=== PATIENT | female | born 1970 | race Caucasian/White ===

== ENCOUNTER 2016-06-16 18:56 | Emergency (ER) | payer OTHER ==
[2016-06-16 19:11] VITALS: BP 127/76
[2016-06-16] MEDS ORDERED: Cyclobenzaprine 10 MG Tab PO ONE (19:14)
[2016-06-16] MEDS ORDERED: Ketorolac 30 MG/ML SDV IM ONE (19:14)
--- NOTE | 2016-06-16 19:19 | EDM.PDOC ---
ED UPPER BACK/NECK PAIN/INJURY - General Chief Complaint: Neck Problem Stated Complaint: SORE NECK Time Seen by Provider: 06/16/16 19:01 - History of Present Illness INITIAL COMMENTS - FREE TEXT/NARRATIVE: 45-year-old female presents emergency room with neck pain. This started 2 days ago on Wednesday and progressively gotten worse. Yesterday she saw a chiropractor had her neck manipulated felt a pop and then the pain got much worse. She does not have any radicular symptoms into her arms. No numbness or tingling. The pain seems to be worse in the left side but both sides are involved. Patient denies any fevers or chills however she has felt warm when she 's been active. Patient has a significant history of prior problems with her neck. Patient cannot recall sleeping on it wrong however the last couple of days she has not gotten much sleep. - Related Data Allergies/ADRs: Allergies Allergy/AdvReac Type Severity Reaction Status Date / Time No Known Allergies Allergy Verified 06/16/16 19:11 Home Meds: Home Meds Spironolactone [Aldactone] 150 mg PO DAILY 09/26/13 [History] Thyroid [[place] Thyroid] 45 mg PO ASDIRECTED 09/26/13 [History] Thyroid,Pork [[place] Thyroid] 60 mg PO ASDIRECTED 09/26/13 [History] Cyclobenzaprine [Flexeril] 10 mg PO TID #15 tablet 06/16/16 [Rx] Hydrocodone/Acetaminophen [Boyce 5-325 Tablet] 1 each PO Q6H PRN #10 tablet [Rx] Social & Family History - Alcohol Use Days Per Week of Alcohol Use: 1 Number of Drinks Per Day: 2 Total Drinks Per Week: 2 - Recreational Drug Use Recreational Drug Use: No ED ROS GENERAL - Review of Systems Review Of Systems: See Below Constitutional: Reports: no symptoms HEENT: Reports: No symptoms Respiratory: Reports: No Symptoms Cardiovascular: Reports: No symptoms GI/Abdominal: Reports: No symptoms Musculoskeletal: Reports: no symptoms ED EXAM, UPPER BACK/NECK PAIN - Physical Exam Exam: See Below Exam Limited By: No limitations General Appearance: alert, no apparent distress Head Exam: atraumatic, normocephalic Neck Exam: normal alignment, normal inspection, muscle spasm, painful range of motion, paraspinous muscle tender, stiff neck, tenderness (Chest bilateral neck tenderness worse on the left compared to the right with the pain at its worst at the insertion of the base of the skull), tender lateral (Do so). No: non- tender, full range of motion, spinous processes tender, tender midline Cardiovascular/Respiratory: regular rate, rhythm, normal peripheral pulses, normal breath sounds, no respiratory distress. No: gallop, murmur, rhonchi, wheezing Extremities: normal inspection, other (Nontender upper extremities with palpation some rotation but stretch on the muscles and going to the neck or uncomfortable. Neurovascular status the hands is normal she has a positive Tinel 's bilaterally with mild distal paresthesias) Course - Vital Signs Last Recorded V/S: Last Vital Signs Temp 37.6 C 06/16/16 19:06 Pulse 93 06/16/16 19:06 Resp 14 06/16/16 19:06 BP 127/76 06/16/16 19:06 Pulse Ox 100 06/16/16 19:06 - Orders/Labs/Meds Orders: Active Orders 24 hr Category Date Time Status Cervical Spine 2V or 3V [CR] Stat Exams 06/16/16 19:15 Taken Meds: Medications Discontinued Medications Generic Name Dose Route Start Last Admin Trade Name Freq PRN Reason Stop Dose Admin Cyclobenzaprine HCl 10 mg 06/16/16 19:14 06/16/16 19:23 Flexeril PO 06/16/16 19:15 10 mg ONETIME ONE Administration Ketorolac Tromethamine 30 mg 06/16/16 19:14 06/16/16 19:23 Toradol IM 06/16/16 19:15 30 mg ONETIME ONE Administration - Re-Assessments/Exams Free Text/Narrative Re-Assessment/Exam: 06/16/16 19:26 Patient has a neck strain albeit the pop she heard during her manipulation yesterday is a little concerning we will go ahead and check C-spine x-rays give her a dose of Toradol and Flexeril. 06/16/16 20:43 The patient is doing a little better at this point she requests something for pain, but is ready to go home. She be given a prescription for Flexeril this was sent to [facility] and will be given a prescription for Boyce #10 5/325 one every 6 hours as needed. Departure - Departure Time of Disposition: 20:44 Disposition: Home, Self-Care 01 Clinical Impression: Cervical muscle strain Prescriptions: Cyclobenzaprine [Flexeril] 10 mg PO TID #15 tablet Hydrocodone/Acetaminophen [Boyce 5-325 Tablet] 1 each PO Q6H PRN #10 tablet PRN Reason: Pain Forms: ED Department Discharge Additional Instructions: Return to emergency room if any questions or problems. Followup at the hospital clinic on for recheck [phone]. You been given Flexeril this is strong muscle relaxant and it can cause sedation. Take one every 8 hours starting tomorrow morning. After 2 days of taking this medication decrease it to once daily only at night. Allow 12 hours after using this medication before driving or returning to work. You have been given Boyce, hydrocodone, this is a pain medication you can take one every 6 hours as needed for pain. Allow 12 hours after taking this medication before driving or returning to work. Continue your ibuprofen 800 mg up to 3 times daily with meals. - My Orders Last 24 Hours: My Active Orders 06/16/16 19:15 Cervical Spine 2V or 3V [CR] Stat - Assessment/Plan Last 24 Hours: My Active Orders 06/16/16 19:15 Cervical Spine 2V or 3V [CR] Stat
--- NOTE | 2016-06-17 06:45 | CR ---
Cervical spine: AP, lateral and odontoid views of the cervical spine were obtained. Comparison: No previous cervical spine exam. Vertebral body heights and disc spaces are maintained. Very minimal kyphosis is seen within the mid cervical spine. No fracture or subluxation is seen. Impression: 1. Slightly abnormal cervical curvature possibly due to mild muscle spasm. 2. Cervical spine study is otherwise unremarkable. Diagnostic code #2
== END 2016-06-16 20:58 | disposition home or self-care (01) ==
LOC: JD.ED 18:56
DX: S16.1XXA Strain of muscle, fascia and tendon at neck level, initial encounter (principal); X58.XXXA Exposure to other specified factors, initial encounter; Z79.899 Other long term (current) drug therapy
CPT/HCPCS: 72040; 96372; 99283; A9270; J1885

== ENCOUNTER 2016-12-01 06:56 | Day surgery (SDC) | payer OTHER ==
[~2016-12-01 06:56] MED LIST: Lidocaine 1%/Sod Bicarbonate in NS 8.4% 1 ML Syringe PRN; Sodium Chloride 0.9% 10 ML Syringe FLUSH PRN
[2016-12-01] MEDS ORDERED: Dexamethasone 4 MG/ML 5 ML MDV ONE (07:12)
[2016-12-01] MEDS ORDERED: Rocuronium 50 MG/5 ML Vial ONE (07:12)
[2016-12-01] MEDS ORDERED: Ondansetron 4 MG/2 ML SDV ONE (07:12)
[2016-12-01] MEDS ORDERED: HYDROmorphone 1 MG/ML Syringe ONE (07:12)
[2016-12-01] MEDS ORDERED: Lidocaine 1% 4 ML ONE (07:12)
[2016-12-01] MEDS ORDERED: Propofol 200 MG/20 ML SDV ONE ×2 (07:13→11:04)
[2016-12-01] MEDS ORDERED: fentaNYL 250 MCG/5 ML SDV ONE (07:13)
[2016-12-01] MEDS ORDERED: Midazolam 1 MG/ML 2 ML SDV ONE (07:13)
[2016-12-01] MEDS ORDERED: ceFAZolin 1 GM Vial ONE (07:14)
[2016-12-01] MEDS: Lactated Ringers 1,000 ML IV SCH ×2 (07:30→12:29)
--- NOTE | 2016-12-01 07:41 | PCM.PREANE ---
Preanesthetic Assessment - Anesthesia/Transfusion/Family Hx Anesthesia History: Prior Anesthesia Without Reaction Family History of Anesthesia Reaction: No Transfusion History: No Prior Transfusion(s) - Review of Systems General: No Symptoms Pulmonary: No Symptoms Cardiovascular: No Symptoms Gastrointestinal: No Symptoms Neurological: No Symptoms Other: Reports: Thyroid Problems - Physical Assessment NPO Status Date: 11/30/16 NPO Status Time: 19:00 Pulse: 55 O2 Sat by Pulse Oximetry: 96 Respiratory Rate: 16 Blood Pressure: 95/47 Temperature: 36.4 C Height: 1.65 m Weight: 71.668 kg ASA Class: 1 Mental Status: Alert & Oriented x3 Airway Class: Mallampati = 1 Dentition: Reports: Normal Dentition Thyro-Mental Finger Breadths: 3 Mouth Opening Finger Breadths: 3 ROM/Head Extension: Full Lungs: Clear to Auscultation, Normal Respiratory Effort Cardiovascular: Regular Rate, Regular Rhythm - Lab Values: Laboratory Last Values WBC 6.16 K/mm3 (3.98-10.04) 11/24/16 14:26 RBC 4.84 M/mm3 (3.98-5.22) 11/24/16 14:26 Hgb 15.4 gm/L (11.2-15.7) 11/24/16 14:26 Hct 45.2 % (34.1-44.9) H 11/24/16 14:26 MCV 93.4 fl (79.4-94.8) 11/24/16 14:26 MCH 31.8 pg (25.6-32.2) 11/24/16 14:26 MCHC 34.1 g/dl (32.2-35.5) 11/24/16 14:26 RDW Std Deviation 40.5 fL (36.4-46.3) 11/24/16 14:26 Plt Count 281 K/mm3 (182-369) 11/24/16 14:26 MPV 9.4 fl (9.4-12.3) 11/24/16 14:26 Neut % (Auto) 64.5 % (34.0-71.1) 11/24/16 14:26 Lymph % (Auto) 23.7 % (19.3-51.7) 11/24/16 14:26 [place] % (Auto) 8.9 % (4.7-12.5) 11/24/16 14:26 Eos % (Auto) 2.1 (0.7-5.8) 11/24/16 14:26 Baso % (Auto) 0.6 % (0.1-1.2) 11/24/16 14:26 Neut # (Auto) 3.97 K/mm3 (1.56-6.13) 11/24/16 14:26 Lymph # (Auto) 1.46 K/mm3 (1.18-3.74) 11/24/16 14:26 [place] # (Auto) 0.55 K/mm3 (0.24-0.36) H 11/24/16 14:26 Eos # (Auto) 0.13 K/mm3 (0.04-0.36) 11/24/16 14:26 Baso # (Auto) 0.04 K/mm3 (0.01-0.08) 11/24/16 14:26 Sodium 141 mEq/L (136-145) 11/24/16 14:26 Potassium 4.1 mEq/L (3.5-5.1) 11/24/16 14:26 Chloride 102 mEq/L (98-107) 11/24/16 14:26 Carbon Dioxide 30 mEq/L (21-32) 11/24/16 14:26 Anion Gap 13.1 (5-15) 11/24/16 14:26 BUN 20 mg/dL (7-18) H 11/24/16 14:26 Creatinine 1.0 mg/dL (0.55-1.02) 11/24/16 14:26 Est Cr Clr Drug Dosing 63.25 mL/min 11/24/16 14:26 Estimated GFR (MDRD) 60 mL/min (>60) 11/24/16 14:26 BUN/Creatinine Ratio 20.0 (14-18) H 11/24/16 14:26 Glucose 117 mg/dL (74-106) H 11/24/16 14:26 Calcium 10.2 mg/dL (8.5-10.1) H 11/24/16 14:26 Total Bilirubin 0.4 mg/dL (0.2-1.0) 11/24/16 14:26 AST 22 U/L (15-37) 11/24/16 14:26 ALT 31 U/L (14-59) 11/24/16 14:26 Alkaline Phosphatase 64 U/L (46-116) 11/24/16 14:26 Total Protein 8.5 g/dl (6.4-8.2) H 11/24/16 14:26 Albumin 4.3 g/dl (3.4-5.0) 11/24/16 14:26 Globulin 4.2 gm/dL 11/24/16 14:26 Albumin/Globulin Ratio 1.0 (1-2) 11/24/16 14:26 Urine HCG, Qual Negative (NEGATIVE) 11/24/16 14:26 - Allergies Allergies/Adverse Reactions: Allergies Allergy/AdvReac Type Severity Reaction Status Date / Time amoxicillin [From Augmentin] Allergy Vomiting Verified 11/30/16 13:50 clavulanic acid Allergy Vomiting Verified 11/30/16 13:50 [From Augmentin] - Acknowledgements Anesthesia Type Planned: General Anesthesia Pt an Appropriate Candidate for the Planned Anesthesia: Yes Alternatives and Risks of Anesthesia Discussed w Pt/Guardian: Yes Pt/Guardian Understands and Agrees with Anesthesia Plan: Yes PreAnesthesia Questionnaire HEENT History: Reports: Otitis Media, Sinusitis Cardiovascular History: Reports: None Respiratory History: Reports: None Gastrointestinal History: Reports: Chronic Constipation, Other (See Below) Other Gastrointestinal History: epigastric pain Genitourinary History: Reports: Urinary Incontinence, Other (See Below) Other Genitourinary History: menorrhagia, stress urinary incontinence ACOUSTICAL CARPENTER History: Reports: , Other (See Below) Other OB/BYN History: pelvic pain, irregular menses, ovariam cyst, ecotpic , grade II cystocele Musculoskeletal History: Reports: None Neurological History: Reports: Migraines Psychiatric History: Reports: Depression Endocrine/Metabolic History: Reports: Hypothyroidism, Other (See Below) Other Endocrine/Metabolic History: hirsutism, hair loss Hematologic History: Reports: None Immunologic History: Reports: None Oncologic (Cancer) History: Reports: None Dermatologic History: Reports: Other (See Below) Other Dermatologic History: itching - Past Surgical History Head Surgeries/Procedures: Reports: None HEENT Surgical History: Reports: None Cardiovascular Surgical History: Reports: None Respiratory Surgical History: Reports: None GI Surgical History: Reports: Cholecystectomy Female Surgical History: Reports: None, Section Other Female Surgeries/Procedures: right salpingectomy Male Surgical History: Reports: None Endocrine Surgical History: Reports: None Neurological Surgical History: Reports: None Musculoskeletal Surgical History: Reports: None Oncologic Surgical History: Reports: None - SUBSTANCE USE Smoking Status *Q: Never Smoker Second Hand Smoke Exposure: No Days Per Week of Alcohol Use: 1 Number of Drinks Per Day: 2 Total Drinks Per Week: 2 Recreational Drug Use History: No - HOME MEDS Home Medications: Home Meds Spironolactone [Aldactone] 150 mg PO DAILY 09/26/13 [History] Thyroid [[place] Thyroid] 45 mg PO MOTUTHFRSA 09/26/13 [History] Thyroid,Pork [[place] Thyroid] 60 mg PO SUWE 09/26/13 [History] Calcium Carbonate/Vitamin D3 [Calcium 600 + Vit D Tablet] 1 tab PO DAILY [History] Multivitamin [Poly-Vitamin] 1 tab PO DAILY 11/30/16 [History] Sertraline [Zoloft] 50 mg PO DAILY 11/30/16 [History] - CURRENT (IN HOUSE) MEDS Current Meds: Current Medications Lactated Ringer's (Ringers, Lactated) 1,000 mls @ 125 mls/hr IV ASDIRECTED INDU Stop: 12/01/16 23:00 Lidocaine/Sodium Bicarbonate (Buffered Lidocaine 1% In Ns 8.4%) 0.25 ml .XX ONETIME PRN PRN Reason: Prior to IV Start Stop: 12/01/16 18:00 Sodium Chloride (Saline Flush) 10 ml FLUSH ASDIRECTED PRN PRN Reason: Keep Vein Open Stop: 12/01/16 18:00 Discontinued Medications Cefazolin Sodium (Ancef) Confirm Administered Dose 2 gm .ROUTE .STK-MED ONE Stop: 12/01/16 07:15 Dexamethasone (Dexamethasone) Confirm Administered Dose 20 mg .ROUTE .STK-MED ONE Stop: 12/01/16 07:13 Fentanyl (Sublimaze) Confirm Administered Dose 250 mcg .ROUTE .STK-MED ONE Stop: 12/01/16 07:14 Hydromorphone HCl (Dilaudid) Confirm Administered Dose 1 mg .ROUTE .STK-MED ONE Stop: 12/01/16 07:13 Lidocaine HCl (Xylocaine-Mpf 1%) Confirm Administered Dose 4 mls @ as directed .ROUTE .STK-MED ONE Stop: 12/01/16 07:13 Midazolam HCl (Versed 1 Mg/Ml) Confirm Administered Dose 2 mg .ROUTE .STK-MED ONE Stop: 12/01/16 07:14 Ondansetron HCl (Zofran) Confirm Administered Dose 4 mg .ROUTE .STK-MED ONE Stop: 12/01/16 07:13 Propofol (Diprivan 20 Ml) Confirm Administered Dose 400 mg .ROUTE .STK-MED ONE Stop: 12/01/16 07:14 Rocuronium [place] (Zemuron) Confirm Administered Dose 50 mg .ROUTE .STK-MED ONE Stop: 12/01/16 07:13
[2016-12-01] MEDS ORDERED: Bupivacaine 0.5% 30 ML SDV ONE (08:16)
[2016-12-01] MEDS: Lidocaine 1% with EPINEPHrine 1:100,000 20 ML MDV ONE ×2 (09:00→09:46)
[2016-12-01] MEDS: Sodium Chloride 0.9% 50 ML SDV ONE ×2 (09:00→09:46)
[2016-12-01] MEDS ORDERED: HYDROmorphone 0.5 MG/0.5 ML Syringe IVPUSH PRN (09:22)
[2016-12-01] MEDS ORDERED: fentaNYL 100 MCG/2 ML SDV IVPUSH PRN (09:22)
[2016-12-01] MEDS ORDERED: Haloperidol Lactate 5 MG/ML SDV IVPUSH ONE (09:22)
[2016-12-01] MEDS ORDERED: Lactated Ringers 1,000 ML ONE ×2 (09:30→11:01)
[2016-12-01] MEDS ORDERED: Ketorolac 30 MG/ML SDV ONE (09:30)
[2016-12-01] MEDS ORDERED: Neostigmine Methylsulfate 1 MG/ML 5 ML Syringe ONE (09:41)
[2016-12-01] MEDS ORDERED: Ondansetron 4 MG/2 ML SDV IVPUSH PRN (10:03)
[2016-12-01] MEDS ORDERED: Acetaminophen/oxyCODONE 325-5 MG Tab PO PRN (10:03)
--- NOTE | 2016-12-01 10:11 | PCM.OPNOTE ---
- General Post-Op/Procedure Note Date of Surgery/Procedure: 12/01/16 Operative Procedure(s): Total vaginal hysterectomy with bilateral salpingectomy and subfascial mid-urethral hammock procedure Findings: Grade 1 cystocele. Uterus is upper limits normal size, ovaries appear intact. Disproportion right fallopian tube was surgically removed with only proximal portion remaining. Left fallopian tube normal. Scar noted in the anterior uterine area where the scar present. Pre Op Diagnosis: Menorrhagia, pelvic pain, abnormal uterine bleeding, stress urine incontinence Post-Op Diagnosis: Same Anesthesia Technique: General ET Tube Other Anesthesia Type: Lidocaine quarter percent with epinephrineapproximately 25 mL total Primary Surgeon: Selwyn Maria Secondary Surgeon: Vadim Smith Anesthesia Provider: Kelli Damon Silk Top Hat Body Maker: Bishop Jensen Reason Silk Top Hat Body Maker Was Necessary: Retraction Role of Silk Top Hat Body Maker: Retraction Pathology: Uterus and bilateral fallopian tubes in one specimen container Fluid Replacement, Intraop: 1,700 Output, Urine Amount: 400 EBL in mLs: 110 Complications: None Condition: Good Free Text/Narrative:: Surgery duration: 53 minutes Procedure: The patient was placed in supine position on the operating table. General endotracheal anesthesia was accomplished. After positioning, and adequate prep and drape, the procedure was then performed. Sterile speculum was placed in the vagina and cervix was visualized. Cervix was injected with lidocaine quarter percent with szetionohna64 mL used. A full circumference incision was made in the cervical epithelium. The bladder was pushed well back off cervix. Posterior cul-de-sac was then entered sharply without problems. Left uterosacral was crossclamped with a Enseal vessel closure system. The left uterosacral and then the right uterosacral ligament pedicles were developed using the Enseal system. The anterior cul-de-sac was then entered without problems and the uterine vasculature, cardinal ligament and broad ligament then developed using Enseal vessel closure system. The uterus was inverted at this time and upper broad ligament fallopian tube pedicles were crossclamped with Chandler clamps. Specimen was totally removed. Both these pedicles were then secured with a Chandler stitch of #1 Vicryl. Left fallopian tube was normal in appearance. Right fallopian tube was present only in the proximal portion was distal portion including the fimbria previously removed.. Using Enseal vessel closure system each of the tubes was then removed and sent with the specimen. Both ovaries were removed per patient' s desire. The Enseal vessel closure system was used to remove both ovaries. The patient was found to be hemostatically intact at this time. A pursestring suture was and placed in the peritoneal cavity externalizing pedicles in case of bleeding. Vaginal cuff was sutured for hemostatic reasons with a running locked suture of 0 Monocryl from the 2 o'clock position to the 10 o'clock position posteriorly. Vaginal cuff was then closed from right to left side with a running locked suture of 0 Monocryl. Subfascial mid-urethral hammock procedure was then performed. The epithelium overlying the urethra was grasped approximately 1 cm from the urethral meatus and approximately 2 cm cephalad from there with Allis clamps. The area of the skin overlying the medial aspect of the obturator foramen on each side just posterior to the origin the abductor longus musclewas marked with a marking pen. These 2 areas and the sub-fascial layer of the vaginal were then infiltrated with lidocaine quarter percent with epinephrinetotal of approximately 10 mL was used. incisions made in the epithelium overlying the urethra and 2 small stab wounds 3 mm in length were made in the 2 areas of the panty line of the patient. The subfascial planes and adequately dissected bilaterally to allow placement of the mesh. The helical adapter was then placed through the obturator on patient's left side brought out through the vaginal subfascial plane. Mesh was attached to it and then was pulled back through the obturator foramen. Same was done on the right side. Mesh was then snugged up to the urethra. Dilator 15 mm in diameter was used as a spacer to place the mesh in a tension-free position. At this point the mesh was cut off at the skin surface and the dilator was removed. The midline epithelium was closed with a short running suture of 3-0 Monocryl. Skin incisions were closed with Dermabond skin glue. These bladder was filled with approximately 240 cc of normal saline to facilitate voiding and therefore discharged home. The patient was returned to supine position, awakened from general endotracheal anesthesia and was discharged from operating room in good
--- NOTE | 2016-12-01 10:19 | PCM.POSTAN ---
POST ANESTHESIA ASSESSMENT - MENTAL STATUS Mental Status: Alert, Oriented - VITAL SIGNS Pulse Rate: 81 SaO2: 96 Resp Rate: 14 Blood Pressure: 85/39 Temperature: 36.4 C - RESPIRATORY Respiratory Status: Respiratory Rate WNL, Airway Patent, O2 Saturation Stable, Supplemental Oxygen - CARDIOVASCULAR CV Status: Pulse Rate WNL, Blood Pressure Stable - GASTROINTESTINAL GI Status: No Symptoms - PAIN Pain Score: 0 - POST OP HYDRATION Hydration Status: Adequate & Stable
[2016-12-01 14:21] VITALS: BP 95/48
--- NOTE | 2016-12-02 13:45 | PCM48HPAN ---
Post Anesthesia Note - EVALUATION WITHIN 48HRS OF ANESTHETIC Vital Signs in Normal Range: Yes Patient Participated in Evaluation: Yes Respiratory Function Stable: Yes Airway Patent: Yes Cardiovascular Function Stable: Yes Hydration Status Stable: Yes Pain Control Satisfactory: Yes Nausea and Vomiting Control Satisfactory: Yes Mental Status Recovered: Yes
== END 2016-12-01 14:00 | disposition home or self-care (01) ==
LOC: JD.SDS 06:56
PROVIDERS: ATTEND Obstetrics & Gynecology
DX: N84.1 Polyp of cervix uteri (principal); N80.0 Endometriosis of uterus; N73.6 Female pelvic peritoneal adhesions (postinfective); N83.8 Other noninflammatory disorders of ovary, fallopian tube and broad ligament; N81.10 Cystocele, unspecified; N39.3 Stress incontinence (female) (male); K59.09 Other constipation; F32.9 Major depressive disorder, single episode, unspecified; E03.9 Hypothyroidism, unspecified; Z88.0 Allergy status to penicillin; Z88.1 Allergy status to other antibiotic agents; Z79.899 Other long term (current) drug therapy; Z90.49 Acquired absence of other specified parts of digestive tract; Z98.890 Other specified postprocedural states
CPT/HCPCS: 36415; 58262; 80053; 81025; 85025; 86850; 86900; 86901; A9270; C1771; J0690; J1100; J1170; J1885; J2250; J2405; J2710; J3010; J7120; 00952; J2704

== ENCOUNTER 2018-02-25 17:24 | Emergency (ER) | payer OTHER ==
[2018-02-25 17:48] VITALS: BP 122/83
[2018-02-25] MEDS ORDERED: HYDROmorphone 1 MG/ML Syringe IVPUSH ONE (18:09)
[2018-02-25] MEDS ORDERED: Sodium Chloride 0.9% 10 ML Syringe FLUSH PRN (18:10)
[2018-02-25] MEDS ORDERED: Lactated Ringers 1,000 ML IV ONE (18:21)
[2018-02-25] MEDS ORDERED: Ondansetron 4 MG/2 ML SDV IVPUSH ONE (18:21)
[2018-02-25] MEDS ORDERED: Iopamidol 612 MG/ML 150 ML Bottle IVPUSH ONE (19:16)
[2018-02-25] MEDS ORDERED: Diatrizoate Meglumine/Diatrizoate Sodium 37% 120 ML Bottle PO ONE (19:16)
--- NOTE | 2018-02-25 20:03 | CT ---
CT abdomen and pelvis Technique: Multiple axial sections were obtained from the top of the diaphragm inferiorly through the pubic symphysis. Intravenous and oral contrast was utilized. Comparison: Prior CT abdomen and pelvis study of 05/28/11. Findings: Visualized lung bases shows nothing acute. Incidental breast prosthesis is noted. Small low-density finding is noted within the right lobe of the liver which appears stable from prior CT and is therefore incidental. No additional abnormality is seen within the liver. Spleen appears within normal limits. Adrenal glands show no nodule. Pancreas is within normal limits. Kidneys show symmetric contrast enhancement without hydronephrosis or mass. Surgical clips are seen from prior cholecystectomy. Aorta shows no aneurysm. No retroperitoneal adenopathy or mesenteric abnormalities are seen. Appendix is seen and is felt to be within normal limits in size. No pelvic mass or adenopathy is seen. Delayed images shows contrast within the distal ureters and within the bladder. Slight increased stool is noted throughout the colon. Bowel is otherwise unremarkable by this exam. Bone window settings were reviewed which appear within normal limits for the patient's age. Impression: 1. Incidental findings. Incidental increased stool is noted within the colon. Appendix appears normal in size. Diagnostic code #2
--- NOTE | 2018-02-25 21:01 | EDM.PDOC ---
ED HPI GENERAL MEDICAL PROBLEM - General Chief Complaint: Abdominal Pain Stated Complaint: ABDOMINAL PAIN Time Seen by Provider: 02/25/18 17:50 Source of Information: Reports: Patient History Limitations: Reports: No Limitations - History of Present Illness INITIAL COMMENTS - FREE TEXT/NARRATIVE: 47-year-old female presents for evaluation and treatment of right upper quadrant abdominal pain. Patient reports pain started suddenly after eating chicken and rice for lunch. She reports associated symptoms of nausea and a decreased appetite. She denies any fevers, chills, chest pain, vomiting or diarrhea. Patient reports past medical history of a laproscopic cholecystectomy. States this feels similar to when shes had gallbladder attacks had in the past. Right Upper Abdomen Pain Score (Numeric/FACES): 8 - Related Data Allergies Allergy/AdvReac Type Severity Reaction Status Date / Time amoxicillin [From Augmentin] AdvReac Vomiting Verified 02/25/18 17:42 clavulanic acid AdvReac Vomiting Verified 02/25/18 17:42 [From Augmentin] Home Meds: Home Meds Spironolactone [Aldactone] 150 mg PO DAILY 09/26/13 [History] Thyroid [[place] Thyroid] 45 mg PO MOTUTHFRSA 09/26/13 [History] Thyroid,Pork [[place] Thyroid] 60 mg PO SUWE 09/26/13 [History] Calcium Carbonate/Vitamin D3 [Calcium 600 + Vit D Tablet] 1 tab PO DAILY [History] Multivitamin [Poly-Vitamin] 1 tab PO DAILY 11/30/16 [History] Ibuprofen 600 mg PO Q4H PRN #30 tablet 12/01/16 [Rx] Past Medical History HEENT History: Reports: Impaired Vision, Otitis Media, Sinusitis Cardiovascular History: Reports: None Respiratory History: Reports: None Gastrointestinal History: Reports: Chronic Constipation, Other (See Below) Other Gastrointestinal History: epigastric pain Genitourinary History: Reports: Urinary Incontinence, Other (See Below) Other Genitourinary History: menorrhagia, stress urinary incontinence SMALL PIECE CUTTER History: Reports: , Other (See Below) Other SMALL PIECE CUTTER History: pelvic pain, irregular menses, ovariam cyst, ecotpic , grade II cystocele Musculoskeletal History: Reports: None Neurological History: Reports: Migraines Psychiatric History: Reports: Depression Endocrine/Metabolic History: Reports: Hypothyroidism, Other (See Below) Other Endocrine/Metabolic History: hirsutism, hair loss Hematologic History: Reports: None Immunologic History: Reports: None Oncologic (Cancer) History: Reports: None Dermatologic History: Reports: Other (See Below) Other Dermatologic History: itching - Past Surgical History Head Surgeries/Procedures: Reports: None HEENT Surgical History: Reports: None, Oral Surgery Cardiovascular Surgical History: Reports: None Respiratory Surgical History: Reports: None GI Surgical History: Reports: Cholecystectomy Female Surgical History: Reports: None, Section, Hysterectomy Other Female Surgeries/Procedures: right salpingectomy Endocrine Surgical History: Reports: None Neurological Surgical History: Reports: None Musculoskeletal Surgical History: Reports: None Oncologic Surgical History: Reports: None Social & Family History - Family History Family Medical History: Noncontributory - Tobacco Use Smoking Status *Q: Never Smoker Second Hand Smoke Exposure: No - Caffeine Use Caffeine Use: Reports: Coffee - Recreational Drug Use Recreational Drug Use: No ED ROS GENERAL - Review of Systems Review Of Systems: See Below Constitutional: Reports: Decreased Appetite. Denies: Fever, Chills GI/Abdominal: Reports: Abdominal Pain (Right upper quadrant), Nausea. Denies: Constipation, Diarrhea, Vomiting : Reports: No Symptoms. Denies: Dysuria ED EXAM, GI/ABD - Physical Exam Exam: See Below Exam Limited By: No Limitations General Appearance: Alert, WD/WN, Mild Distress Throat/Mouth: Normal Inspection, Normal Voice, No Airway Compromise Neck: Normal Inspection Respiratory/Chest: No Respiratory Distress, Lungs Clear, Normal Breath Sounds Cardiovascular: Normal Peripheral Pulses, Regular Rate, Rhythm, No Murmur GI/Abdominal Exam: Normal Bowel Sounds, Soft, Tender (+ pain at mcburnies point , negative murphys sign, + pain with heel percussion, + obturator sign) Neurological: Alert, Oriented, Normal Cognition Psychiatric: Normal Affect, Normal Mood Skin Exam: Warm, Dry, Normal Color Course - Vital Signs Last Recorded V/S: Last Vital Signs Temp 98.5 F 02/25/18 17:46 Pulse 74 02/25/18 17:46 Resp 16 02/25/18 17:46 BP 122/83 02/25/18 17:46 Pulse Ox 96 02/25/18 17:46 - Orders/Labs/Meds Labs: Laboratory Tests 02/25/18 02/25/18 02/25/18 Range/Units 18:00 18:00 18:05 WBC 5.59 (3.98-10.04) K/mm3 RBC 4.40 (3.98-5.22) M/mm3 Hgb 14.4 (11.2-15.7) gm/L Hct 41.7 (34.1-44.9) % MCV 94.8 (79.4-94.8) fl MCH 32.7 H (25.6-32.2) pg MCHC 34.5 (32.2-35.5) g/dl RDW Std Deviation 40.9 (36.4-46.3) fL Plt Count 278 (182-369) K/mm3 MPV 9.5 (9.4-12.3) fl Neutrophils % (Manual) 59 (40-60) % Band Neutrophils % 0 (0-10) % Lymphocytes % (Manual) 34 (20-40) % Atypical Lymphs % 0 % Monocytes % (Manual) 4 (2-10) % Eosinophils % (Manual) 3 (0.7-5.8) % Basophils % (Manual) 0 L (0.1-1.2) Platelet Estimate Adequate RBC Morph Comment Normal Sodium 141 (136-145) mEq/L Potassium 4.1 (3.5-5.1) mEq/L Chloride 104 (98-107) mEq/L Carbon Dioxide 27 (21-32) mEq/L Anion Gap 14.1 (5-15) BUN 13 (7-18) mg/dL Creatinine 0.9 (0.55-1.02) mg/dL Est Cr Clr Drug Dosing 72.34 mL/min Estimated GFR (MDRD) > 60 (>60) mL/min BUN/Creatinine Ratio 14.4 (14-18) Glucose 105 (74-106) mg/dL Calcium 9.1 (8.5-10.1) mg/dL Total Bilirubin 0.1 L (0.2-1.0) mg/dL AST 20 (15-37) U/L ALT 26 (14-59) U/L Alkaline Phosphatase 70 (46-116) U/L C-Reactive Protein < 0.2 (<1.0) mg/dL Total Protein 7.6 (6.4-8.2) g/dl Albumin 4.0 (3.4-5.0) g/dl Globulin 3.6 gm/dL Albumin/Globulin Ratio 1.1 (1-2) Lipase 127 (73-393) U/L Urine Color Yellow (Yellow) Urine Appearance Clear (Clear) Urine pH 8.5 H (5.0-8.0) Ur Specific [place] 1.020 (1.005-1.030) Urine Protein Negative (Negative) Urine Glucose (UA) Negative (Negative) Urine Ketones Negative (Negative) Urine Occult Blood Negative (Negative) Urine Nitrite Negative (Negative) Urine Bilirubin Negative (Negative) Urine Urobilinogen 0.2 (0.2-1.0) Ur Leukocyte Esterase Negative (Negative) Urine RBC 0-5 (0-5) /hpf Urine WBC 0-5 (0-5) /hpf Ur Epithelial Cells 0-5 (0-5) /hpf Urine Bacteria Occasional (FEW) /hpf Urine Mucus Not seen (FEW) /hpf Meds: Medications Discontinued Medications Generic Name Dose Route Start Last Admin Trade Name Freq PRN Reason Stop Dose Admin Diatrizoate Meglum/Diatrizoate Sod 120 ml 02/25/18 19:16 02/25/18 19:41 Gastrografin 37% PO 02/25/18 19:17 120 ml ONETIME ONE Administration Hydromorphone HCl 0.5 mg 02/25/18 18:09 02/25/18 18:25 Dilaudid IVPUSH 02/25/18 18:10 0.5 mg ONETIME ONE Administration Lactated Ringer's 1,000 mls @ 999 mls/hr 02/25/18 18:21 02/25/18 18:31 Ringers, Lactated IV 02/25/18 19:21 999 mls/hr .BOLUS ONE Administration Iopamidol 150 ml 02/25/18 19:16 02/25/18 19:42 Isovue-300 (61%) IVPUSH 02/25/18 19:17 125 ml ONETIME ONE Administration Ondansetron HCl 4 mg 02/25/18 18:21 02/25/18 18:30 Zofran IVPUSH 02/25/18 18:22 4 mg ONETIME ONE Administration Sodium Chloride 10 ml 02/25/18 18:10 02/25/18 18:26 Saline Flush FLUSH 10 ml ASDIRECTED PRN Administration Keep Vein Open - Radiology Interpretation Free Text/Narrative:: CT abdomen and pelvis Technique: Multiple axial sections were obtained from the top of the diaphragm inferiorly through the pubic symphysis. Intravenous and oral contrast was utilized. Comparison: Prior CT abdomen and pelvis study of 05/28/11. Findings: Visualized lung bases shows nothing acute. Incidental breast prosthesis is noted. Small low-density finding is noted within the right lobe of the liver which appears stable from prior CT and is therefore incidental. No additional abnormality is seen within the liver. Spleen appears within normal limits. Adrenal glands show no nodule. Pancreas is within normal limits. Kidneys show symmetric contrast enhancement without hydronephrosis or mass. Surgical clips are seen from prior cholecystectomy. Aorta shows no aneurysm. No retroperitoneal adenopathy or mesenteric abnormalities are seen. Appendix is seen and is felt to be within normal limits in size. No pelvic mass or adenopathy is seen. Delayed images shows contrast within the distal ureters and within the bladder. Slight increased stool is noted throughout the colon. Bowel is otherwise unremarkable by this exam. Bone window settings were reviewed which appear within normal limits for the patient's age. Impression: 1. Incidental findings. Incidental increased stool is noted within the colon. Appendix appears normal in size. - Re-Assessments/Exams Free Text/Narrative Re-Assessment/Exam: 02/25/18 21:00 I reviewed the labs and imaging with the patient. Appears to be constipation. Stool is primarily locatedo n the right hemicolon where she is having pain. Patient is rather resistant to this. Will discharge home tonight. Discharge instructions as documented. Departure - Departure Time of Disposition: 21:01 Disposition: Home, Self-Care 01 Condition: Fair Clinical Impression: Constipation - Discharge Information *PRESCRIPTION DRUG MONITORING PROGRAM REVIEWED*: No *COPY OF PRESCRIPTION DRUG MONITORING REPORT IN PATIENT MECCA: No Instructions: Constipation, Adult Referrals: PCP,None [Primary Care Provider] - Yulisa Ellis MD [Physician] - Forms: ED Department Discharge Additional Instructions: Recommend drinking a bottle of magnesium citrate, this is available OTC. Make sure you are drinking plenty of fluids. Follow-up with family medicine in 1 week for a recheck of your symptoms. Recommend Dr. Ellis at the [facility], call [phone] to schedule with her. Please return to the ER should your symptoms change or worsen.
== END 2018-02-25 21:42 | disposition home or self-care (01) ==
LOC: JD.ED 17:24
DX: K59.00 Constipation, unspecified (principal); E03.9 Hypothyroidism, unspecified; Z88.1 Allergy status to other antibiotic agents; Z88.8 Allergy status to other drugs, medicaments and biological substances; Z79.899 Other long term (current) drug therapy
CPT/HCPCS: 36415; 74177; 80053; 81001; 83690; 85007; 85027; 86140; 96361; 96374; 96375; 99284; J1170; J2405; J7120; Q9963; Q9967

== ENCOUNTER 2021-07-15 07:46 | Day surgery (SDC) | payer BC ==
[~2021-07-15 07:46] MED LIST changes: +Lactated Ringers 1,000 ML IV SCH; +Lidocaine 1%/Sod Bicarbonate in NS 8.4% 1 ML Syringe IDERM PRN; -Lidocaine 1%/Sod Bicarbonate in NS 8.4% 1 ML Syringe PRN; +Sodium Chloride 0.9% 10 ML Syringe FLUSH SCH
[2021-07-15] MEDS ORDERED: fentaNYL 100 MCG/2 ML SDV ONE (08:27)
[2021-07-15] MEDS ORDERED: Midazolam 1 MG/ML 2 ML SDV ONE (08:27)
[2021-07-15] MEDS ORDERED: Propofol 200 MG/20 ML SDV ONE ×2 (08:27→09:44)
[2021-07-15] MEDS ORDERED: Lidocaine 1% 4 ML ONE (08:45)
[2021-07-15] MEDS ORDERED: ePHEDrine 50 MG/ML SDV ONE (09:21)
[2021-07-15 10:24] VITALS: BP 111/62; PULSE 89
== END 2021-07-15 11:10 | disposition home or self-care (01) ==
LOC: JD.SDS 07:46
PROVIDERS: ATTEND Surgery
DX: K29.50 Unspecified chronic gastritis without bleeding (principal); K64.8 Other hemorrhoids; K31.89 Other diseases of stomach and duodenum; K44.9 Diaphragmatic hernia without obstruction or gangrene; K21.9 Gastro-esophageal reflux disease without esophagitis; F32.A Depression, unspecified; H54.7 Unspecified visual loss; E03.9 Hypothyroidism, unspecified; Z98.890 Other specified postprocedural states; Z79.899 Other long term (current) drug therapy; Z80.3 Family history of malignant neoplasm of breast; Z80.0 Family history of malignant neoplasm of digestive organs; Z88.0 Allergy status to penicillin; Z88.1 Allergy status to other antibiotic agents; Z79.890 Hormone replacement therapy
CPT/HCPCS: 43239; 45378; J2250; J2704; J3010; J7120

== ENCOUNTER 2022-04-11 20:57 | Emergency (ER) | payer BC ==
[2022-04-11 22:06] VITALS: BP 138/70; PULSE 79
== END 2022-04-12 00:56 | disposition home or self-care (01) ==
LOC: JD.ED 20:57
DX: M79.604 Pain in right leg (principal); K21.9 Gastro-esophageal reflux disease without esophagitis; E03.9 Hypothyroidism, unspecified; Z88.0 Allergy status to penicillin; Z79.899 Other long term (current) drug therapy
CPT/HCPCS: 36415; 80053; 85025; 85610; 85730; 93971-26-RT; 93971-RT; 99283; 99284

== ENCOUNTER 2023-10-05 07:58 | Day surgery (SDC) | payer BC ==
[~2023-10-05 07:58] MED LIST changes: +HYDROmorphone 0.5 MG/0.5 ML Syringe IVPUSH PRN; -Lidocaine 1%/Sod Bicarbonate in NS 8.4% 1 ML Syringe IDERM PRN; +Ondansetron 4 MG/2 ML SDV IVPUSH PRN; +fentaNYL 100 MCG/2 ML SDV IVPUSH PRN
[2023-10-05] MEDS ORDERED: Propofol 200 MG/20 ML SDV ONE ×2 (08:01→09:06)
[2023-10-05] MEDS ORDERED: fentaNYL 100 MCG/2 ML SDV ONE (08:01)
[2023-10-05] MEDS ORDERED: Midazolam 1 MG/ML 2 ML SDV ONE (08:02)
[2023-10-05] MEDS: Lactated Ringers 1,000 ML IV SCH (08:15)
[2023-10-05] MEDS: Lidocaine 1% with EPINEPHrine 1:100,000 20 ML MDV ONE (09:02)
[2023-10-05] MEDS: EPINEPHrine 1 MG/ML SDV ONE (09:02)
[2023-10-05] MEDS: Bupivacaine 0.5% 10 ML SDV ONE (09:02)
[2023-10-05 12:57] VITALS: BP 108/68; PULSE 72
== END 2023-10-05 12:40 | disposition home or self-care (01) ==
LOC: JD.SDS 07:58
PROVIDERS: ATTEND Surgery
DX: D17.22 Benign lipomatous neoplasm of skin and subcutaneous tissue of left arm (principal); D17.1 Benign lipomatous neoplasm of skin and subcutaneous tissue of trunk; K21.9 Gastro-esophageal reflux disease without esophagitis; F41.9 Anxiety disorder, unspecified; F32.A Depression, unspecified; E03.9 Hypothyroidism, unspecified; Z79.899 Other long term (current) drug therapy; Z88.0 Allergy status to penicillin; Z79.890 Hormone replacement therapy
CPT/HCPCS: 11402; 25075; J0171; J0665; J2250; J2704; J3010; J7120; 00400; J3490

== ENCOUNTER 2024-04-22 21:26 | Emergency (ER) | payer BC ==
[2024-04-22 21:44] VITALS: PULSE 82
[2024-04-22 21:45] VITALS: BP 141/89
[2024-04-22] MEDS: Orphenadrine 60 MG/2 ML Inj IM ONE (21:51)
== END 2024-04-22 22:39 | disposition home or self-care (01) ==
LOC: JD.ED 21:26
DX: M62.830 Muscle spasm of back (principal); K21.9 Gastro-esophageal reflux disease without esophagitis; E03.9 Hypothyroidism, unspecified; Z86.16 Personal history of COVID-19; Z90.49 Acquired absence of other specified parts of digestive tract; Z90.710 Acquired absence of both cervix and uterus; Z79.899 Other long term (current) drug therapy; Z79.890 Hormone replacement therapy; Z88.0 Allergy status to penicillin
CPT/HCPCS: 96372; 99283; J2360